=== PATIENT | male | born 1975 | race Caucasian/White ===

== ENCOUNTER 2018-11-19 22:35 | Emergency (ER) | payer OTHER ==
[~2018-11-19] VITALS: Ht 167.6 cm; Wt 76.7 kg
[~2018-11-19 22:35] MED LIST: MELO7.5T38 PO
[2018-11-19 22:37] VITALS: Ht 167.6 cm; Wt 76.7 kg
[2018-11-19] MEDS ORDERED: KETOROLAC 60 MG INJ IM STA (23:24)
--- NOTE | 2018-11-19 23:24 | ERD ---
ER Documentation Chief Complaint Chief Complaint NECK PAIN X 20 YEARS. HPI Patient is a 43 years old male presenting to the clinic for neck pain x 20 years. 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 Patient is requesting Hydrocodone. Patient denies any new trauma or injury. Denies fever, chills, night sweats. Patient reports history of migraine and neck injury 25 years ago. Patient is currently on Gabapenting and Tramadol. 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 Previous marijuana smoker. ROS All systems reviewed and are negative except as per history of present illness. Allergies Allergies: Coded Allergies: No Known Allergy (Unverified , 11/19/18) PMhx/Soc Neck surgery in June 2018. History of Surgery: Yes Anesthesia Reaction: No Hx Neurological Disorder: No Hx Respiratory Disorders: No Hx Cardiac Disorders: No Hx Psychiatric Problems: No Hx Miscellaneous Medical Probl: No Hx Alcohol Use: Yes Hx Substance Use: Yes Hx Tobacco Use: Yes Smoking Status: Current some day smoker FmHx Family History: No diabetes, No coronary disease, No other Physical Exam Vitals Vital Signs Date Temp Pulse Resp B/P (MAP) Pulse Ox O2 O2 Flow FiO2 Time Delivery Rate 11/19/18 98.2 110 18 147/95 98 22:37 (112) Physical Exam Const: No acute distress Head: Atraumatic Neck: Full range of motion. No meningismus. Subjective tenderness to palpation without objective findings. Resp: Clear to auscultation bilaterally Cardio: Regular rate and rhythm, no murmurs Psych: Normal Mood and Affect Results 24 hrs Current Medications Medications Dose Sig/Charlie Start Time Status Last (Trade) Ordered Route PRN Stop Time Admin Dose Reason Admin Ketorolac 60 mg ONCE STAT 11/19/18 DC 11/19/18 Tromethamine IM 23:24 11/19/18 23:33 (Toradol) 23:26 125 mg ONCE ONCE 11/19/18 DC 11/19/18 Methylprednis IM 23:30 11/19/18 23:33 olone Sodium 23:31 Succinate (Solu-Medrol) Procedures/MDM Patient was seen and evaluated medication refill for neck pain. Patient shows no signs new trauma or worsening symptoms. Patient was advised that he will not be receiving Hydrocodone. Toradol 60IM and SOlumedrol IM administered in ED. Patient is stable and ready for discharge. F/U with PCP. Departure Diagnosis: Primary Impression: Neck pain Condition: Stable Patient Instructions: Neck Pain, No Trauma Referrals: [facility] Additional Instructions: Paciente aconseja volver a Departamento de urgencias inmediatamente para sntomas nuevos o que empeoran . Paciente aconseja posteriores con el PCP en 2-3 martin . Paciente verbaliza la comprehensin y est de acuerdo con el tratamiento y el curso de accin. Si el paciente no tiene ninguna de atencin primaria pueden seguir con [facility] [id number] [place] [address] o [facility] + [address] [address] SHAISTA GALVAN PA-C Nov 19, 2018 23:24
[2018-11-19] MEDS ORDERED: METHYLPREDNISOLONE 125 MG INJ IM ONE (23:30)
[2018-11-20] VITALS: BP 136/83; PULSE 94; RESP 18
== END 2018-11-20 | disposition home or self-care (01) ==
LOC: FTE 22:35
DX: M54.2 Cervicalgia (principal); F17.210 Nicotine dependence, cigarettes, uncomplicated
CPT/HCPCS: 96372; J1885; J2930; Z7502